=== PATIENT | male | born 1935 | race Caucasian/White ===

== ENCOUNTER 2016-03-21 01:00 | Inpatient (IN) | payer MEDICARE, BC ==
[~2016-03-21] VITALS: Ht 188 cm; Wt 99.7 kg
[~2016-03-21 01:00] MED LIST: AMLOPIDINE PO; GEMCOR600 MG PO; PREDNISONE20 MG PO; PREDNISONE5 MG/5 M1 PO; PROVENTIL0.09 MG/A1 IH; ZITHROMAX TRI-500 MG PO; ZOCOR PO; ZOLOFT; felodipine
[2016-03-21] MEDS ORDERED: 00186-0370-20 IH (01:08)
[2016-03-21 01:37] LABS: HEMATOCRIT 44.5 % (42.0-52.0); HEMOGLOBIN 14.3 g/dl (13.5-18.0); MEAN CELL VOLUME 95 fl (80.0-100.0); MEAN CORPUSCULAR HEMOGLOBIN 31 pg (27.0-31.0); MEAN CORPUSCULAR HGB CONC 32 g/dl (33.0-37.0); MEAN PLATELET VOLUME 10.2 fl (7.4-10.4); PLATELET COUNT 315 K/mm3 (130-400); RED BLOOD COUNT 4.67 M/mm3 (4.20-5.60); REDCELL DISTRIBUTION WIDTH-CV 16.1 % (11.5-14.5)
[2016-03-21 01:39] LABS: WHITE BLOOD COUNT 118.6 K/mm3 (4.8-10.8)
[2016-03-21 01:49] LABS: ADJUSTED CALCIUM 9.2 mg/dL (8.4-10.2); ALBUMIN 4.5 gm/dL (3.5-5.0); BILIRUBIN,TOTAL 1.4 mg/dL (0.0-1.0); CALCIUM 9.6 mg/dL (8.4-10.2); POTASSIUM 4.8 mmol/L (3.4-5.0); TOTAL PROTEIN 8.2 gm/dL (6.4-8.2)
[2016-03-21 01:58] LABS: CREATININE, serum 4.59 mg/dL (0.66-1.25)
[2016-03-21 02:02] LABS: URINE COLOR Red
[2016-03-21 02:03] LABS: PH 8 (5-8); URINE APPEARANCE Turbid; URINE BILIRUBIN Positive (NEGATIVE); URINE BLOOD 3+ (NEGATIVE); URINE GLUCOSE Negative (NEGATIVE); URINE KETONE Negative (NEGATIVE); URINE UROBILINOGEN Negative (NEGATIVE)
[2016-03-21 02:04] LABS: SQUAMOUS EPITHELIAL 0-2 /hpf; URINE BACTERIA Moderate /hpf; URINE RBC >50 /hpf
[2016-03-21 02:23] LABS: ADD PATHOLOGY DIFF REVIEW YES; ANISOCYTOSIS 1+; BAND 18 % (0-10); BASOPHIL 3 % (0-2); METAMYELOCYTE 4 % (0-0); MYELOCYTE 6 % (0-0); NEUTROPHILS 60 % (42.0-75.2); PLATELET ESTIMATE NORMAL (NORMAL); TOTAL CELLS COUNTED 102
[2016-03-21 05:07] VITALS: BP 91/58; PULSE 108; TEMP 99.2
[2016-03-21 08:22] VITALS: BP 135/62; PULSE 102; TEMP 98.4
[2016-03-21 12:31] VITALS: BP 106/53; PULSE 94; TEMP 98.5
[2016-03-21 15:09] VITALS: BP 124/58; PULSE 90; TEMP 97.9
[2016-03-21 19:35] VITALS: BP 162/73; PULSE 88; TEMP 98.2
[2016-03-21 23:42] VITALS: BP 146/65; PULSE 90; TEMP 98.7
[2016-03-22 03:13] VITALS: BP 142/67; PULSE 90; TEMP 98.7
[2016-03-22 07:15] LABS: ADD PATHOLOGY DIFF REVIEW NO
[2016-03-22 07:34] LABS: MEAN CELL VOLUME 94 fl (80.0-100.0); MEAN CORPUSCULAR HGB CONC 33 g/dl (33.0-37.0); MEAN PLATELET VOLUME 11.8 fl (7.4-10.4); PLATELET COUNT 238 K/mm3 (130-400); RED BLOOD COUNT 3.55 M/mm3 (4.20-5.60); REDCELL DISTRIBUTION WIDTH-CV 15.9 % (11.5-14.5)
[2016-03-22 07:51] LABS: CALCIUM 8.6 mg/dL (8.4-10.2); MAGNESIUM 1.6 mg/dL (1.6-2.3); POTASSIUM 4.9 mmol/L (3.4-5.0)
[2016-03-22 08:00] LABS: BASOPHIL 1 % (0-2); METAMYELOCYTE 2 % (0-0); MYELOCYTE 4 % (0-0); NEUTROPHILS 65 % (42.0-75.2)
[2016-03-22 08:01] LABS: BAND 17 % (0-10); PLATELET ESTIMATE NORMAL (NORMAL); TOTAL CELLS COUNTED 100
[2016-03-22 08:17] LABS: CREATININE, serum 4.18 mg/dL (0.66-1.25)
[2016-03-22 08:21] LABS: HEMATOCRIT 33.5 % (42.0-52.0); HEMOGLOBIN 10.9 g/dl (13.5-18.0); MEAN CORPUSCULAR HEMOGLOBIN 31 pg (27.0-31.0); THYROID STIMULATING HORMONE 3.93 uIU/mL (0.465-4.680)
[2016-03-22 08:53] LABS: PATHOLOGY DIFF REVIEW OK
[2016-03-22 09:02] VITALS: BP 137/58; PULSE 89; TEMP 98.9
[2016-03-22 11:47] VITALS: BP 150/62; PULSE 92; TEMP 97.7
[2016-03-22 16:36] VITALS: BP 142/65; PULSE 87; TEMP 98.8
[2016-03-22 19:30] VITALS: BP 119/54; PULSE 79; TEMP 98.2
[2016-03-22 23:44] VITALS: BP 150/75; PULSE 97; TEMP 98.7
[2016-03-23 03:44] VITALS: BP 147/71; PULSE 85; TEMP 98.7
[2016-03-23 07:25] LABS: MEAN CELL VOLUME 97 fl (80.0-100.0); MEAN CORPUSCULAR HGB CONC 31 g/dl (33.0-37.0); MEAN PLATELET VOLUME 11.4 fl (7.4-10.4); PLATELET COUNT 256 K/mm3 (130-400); RED BLOOD COUNT 3.49 M/mm3 (4.20-5.60); REDCELL DISTRIBUTION WIDTH-CV 15.9 % (11.5-14.5)
[2016-03-23 07:26] LABS: CALCIUM 8.9 mg/dL (8.4-10.2); CREATININE, serum 3.63 mg/dL (0.66-1.25); POTASSIUM 4.5 mmol/L (3.4-5.0)
[2016-03-23 07:44] LABS: ADD PATHOLOGY DIFF REVIEW NO; HEMATOCRIT 33.8 % (42.0-52.0); HEMOGLOBIN 10.5 g/dl (13.5-18.0); MEAN CORPUSCULAR HEMOGLOBIN 30 pg (27.0-31.0); WHITE BLOOD COUNT 88.4 K/mm3 (4.8-10.8)
[2016-03-23 08:00] VITALS: BP 145/67; PULSE 88; TEMP 98.7
[2016-03-23 08:27] LABS: BAND 13 % (0-10); METAMYELOCYTE 6 % (0-0); MYELOCYTE 10 % (0-0); NEUTROPHILS 66 % (42.0-75.2); PLATELET ESTIMATE NORMAL (NORMAL); TOTAL CELLS COUNTED 100
[2016-03-23 11:48] VITALS: BP 141/63; PULSE 82; TEMP 98.8
[2016-03-23 16:24] VITALS: BP 136/64; PULSE 81; TEMP 97.4
[2016-03-23 19:16] VITALS: BP 147/63; PULSE 84; TEMP 97.9
[2016-03-23 23:43] VITALS: BP 140/61; PULSE 74; TEMP 98.2
[2016-03-24 04:52] VITALS: BP 125/71; PULSE 57; TEMP 98.6
[2016-03-24 08:11] VITALS: BP 167/77; PULSE 103; TEMP 97.9
[2016-03-24 08:35] LABS: CALCIUM 9.2 mg/dL (8.4-10.2); CREATININE, serum 3.19 mg/dL (0.66-1.25); POTASSIUM 4.3 mmol/L (3.4-5.0)
[2016-03-24] MEDS ORDERED: FLOMAX 0.40.4 MG/CAP PO (09:49)
[2016-03-24] MEDS ORDERED: NORCO 325 MG-51 TAB PO (09:50)
[2016-03-24] MEDS ORDERED: LOPRESSOR 225 MG/TAB PO (09:50)
[2016-03-24] MEDS ORDERED: ASPIRIN 81M81 MG/TA2 PO (09:50)
[2016-03-24] MEDS ORDERED: CIPRO 500MG TA500 MG PO (10:03)
[2016-03-24 11:21] VITALS: BP 126/59; PULSE 86
[2016-03-25 16:36] LABS: BCR-ABL 1 SPECIMEN BLOOD (())
== END 2016-03-24 11:49 | disposition home or self-care (01) | DRG 683 ==
LOC: COL.ER 01:00 → MEDICAL 03:35
PROVIDERS: Emergency Medicine; Family Medicine; Internal Medicine
PROC: 07DR3ZX Extraction of Iliac Bone Marrow, Percutaneous Approach, Diagnostic (ICD-10-PCS; principal; 2016-03-22)
DX: N17.9 Acute kidney failure, unspecified (principal); N13.8 Other obstructive and reflux uropathy; N39.0 Urinary tract infection, site not specified; C92.10 Chronic myeloid leukemia, BCR/ABL-positive, not having achieved remission; E87.1 Hypo-osmolality and hyponatremia; E87.2 Acidosis; N40.1 Benign prostatic hyperplasia with lower urinary tract symptoms; N13.30 Unspecified hydronephrosis; I10 Essential (primary) hypertension; B96.89 Other specified bacterial agents as the cause of diseases classified elsewhere; J44.9 Chronic obstructive pulmonary disease, unspecified; Z87.891 Personal history of nicotine dependence; J45.909 Unspecified asthma, uncomplicated; I48.0 Paroxysmal atrial fibrillation
CPT/HCPCS: 99223-AI; 99232-AI; 99239; A4315; J0696; J1170; J1644; J1885; J2405; J2765; J3010; J7030